=== PATIENT | female | born 1940 | race Caucasian/White ===

== ENCOUNTER 2018-10-05 08:35 | Inpatient (IN) ==
[2018-10-05 09:16] LABS: Hematocrit 39.3 % (37.0-47.0); Hemoglobin 13.4 gm/dL (12.5-16.0); Mean Corpuscular Hgb Conc 34.1 g/dl (32-36); Mean Platelet Volume 8.2 fl (8-12.5); Neutrophil % 87.8 % (42-75.0); Platelet Count 224 K/mm3 (150-450); Red Blood Count 4.32 M/mm3 (4.2-5.4); Red Cell Distribution Width 13.2 % (11.5-14.0); White Blood Count 9.1 K/mm3 (4.0-10.5)
[2018-10-05] MEDS ORDERED: NORMAL SALINE 1,000 ML IV ONE (09:24)
[2018-10-05 09:28] LABS: Albumin * 3.6 gm/dl (3.4-5.0); Anion Gap 16.3 mmol/L (6.8-13.8); BUN/Creatinine Ratio 22.1 (9.0-21.6); Bilirubin, Total 0.4 mg/dL (0.0-1.1); Ca. Corrected For Albumin 9.2 mg/dL (8.4-10.2); Calcium * 9.2 mg/dL (7.9-10.9); Carbon Dioxide 20.5 mmol/L (24-32.6); Magnesium 1.4 mg/dL (1.2-2.8); Potassium 3.8 mmol/L (3.4-4.6); Total Protein 7.4 gm/dL (6.2-8.2)
--- NOTE | 2018-10-05 09:53 | ERNOTE ---
Neuro HPI ER Record Date of Service: 10/05/18 Presenting Symptoms: other - Dizziness and confusion Time Seen by Provider: 10/05/18 09:21 Source: patient, family - Granddaughter Exam Limitations: no limitations Immunizations: IMMUNIZATION HX Immunizations Up to Date Yes History of Influenza Vaccine Yes Hx Pneumococcal Vaccination Yes Allergies/Adverse Reactions: Allergies Allergy/AdvReac Type Severity Reaction Status Date / Time Sulfa (Sulfonamide Allergy Verified 10/05/18 12:55 Antibiotics) atorvastatin [From Lipitor] AdvReac Intermediate Other Verified 10/05/18 15:56 venlafaxine AdvReac Mild Other Verified 10/05/18 15:56 Home Medications: HOME MEDICATIONS Alendronate Sodium 70 mg PO Q7D 10/05/18 [Last Taken Unknown] Alprazolam 0.5 mg PO BID PRN 10/05/18 [Last Taken Unknown] Blood Sugar Diagnostic [Freestyle Precision James] 1 ea MC BID 10/05/18 [Last Taken Unknown] Bupropion HCl [Wellbutrin Sr] 150 mg PO DAILY 10/05/18 [Last Taken Unknown] Dapagliflozin Propanediol [Farxiga] 10 mg PO DAILY 10/05/18 [Last Taken Unknown] Esomeprazole Magnesium 40 mg PO DAILY 10/05/18 [Last Taken Unknown] FLUoxetine HCL [Prozac] 40 mg PO QAM 10/05/18 [Last Taken Unknown] Fenofibrate 160 mg PO DAILY 10/05/18 [Last Taken Unknown] Lancets [Unilet Gp Lancet] 1 ea MC BID 10/05/18 [Last Taken Unknown] Levothyroxine Sodium [Synthroid] 50 mcg PO DAILY 10/05/18 [Last Taken Unknown] Lisinopril [Prinivil] 10 mg PO DAILY 10/05/18 [Last Taken Unknown] Loratadine [Claritin] 10 mg PO DAILY PRN 10/05/18 [Last Taken Unknown] Rosuvastatin Calcium 10 mg PO DAILY 10/05/18 [Last Taken Unknown] Temazepam 15 mg PO Q2D 10/05/18 [Last Taken Unknown] hydrOXYzine HCL [Hydroxyzine HCl] 50 mg PO Q6H PRN 10/05/18 [Last Taken Unknown] traZODone HCL [Trazodone HCl] 50 mg PO HS 10/05/18 [Last Taken Unknown] - History of Present Illness Narrative: This patient is a 78-year-old female who says that she is here because she got real dizzy and almost fell this morning. The granddaughter says that the family was concerned because she seemed to be confused. She normally is cared for in [place] but came here because they do not like her doctor. The patient denies fever, cough, and cold symptoms. She said that she is been having some diarrhea. She has diabetes and does not check her sugar at home. She has not eaten since yesterday. She has dysuria. The granddaughter is concerned that she is not on the right medication. They do not know her medications and did not bring them with her. Review of Systems - Review of Systems Constitutional: Absent: fever, chills, weakness EYE: Absent: blurred vision, double vision, vision changes ENT: Absent: ear pain, nose congestion, nasal drainage, sore throat Respiratory: Absent: shortness of breath, cough Cardiology: Absent: chest pain - She reports having a short episode of chest heaviness this morning. Gastrointestinal/Abdominal: Present: diarrhea, eating less, drinking less. Absent: nausea, vomiting, constipation, abdominal pain Genitourinary: Present: pain, dysuria. Absent: frequency, hematuria Musculoskeletal: Present: joint pain Neurological: Present: dizziness/light-headedness. Absent: anxiety, depressed, headache, weakness, numbness, tingling Endocrine: Present: See HPI, increased thirst, unexplained weight gain - She has gained 8 pounds in the past 3 months.. Absent: unexplained weight loss Hematologic/Lymphatic: Present: other - No active bleeding Psych: Absent: anxiety, depressed Medical History (Last Updated 10/05/18 @ 09:31 by Danial Sharif MD) Depression Diabetes High cholesterol Osteoarthritis Surgical History: Surgical History (Last Reviewed 10/05/18 @ 09:30 by Danial Sharif MD) History of bilateral mastectomy History of breast augmentation History of reconstruction of right breast History of rotator cuff surgery Family History: Family History (Last Updated 10/05/18 @ 16:29 by Hemal Cohen RN) Mother Heart disease 96 Hypertension Uterine cancer Father Epilepsy @ 81 Hypertension CVA (cerebral vascular accident) Social History: Preferred Language Bengali Smoking Status Never smoker Alcohol Use none Drug Use none No Social History Section defined Physical Exam - Physical Exam General Appearance: Present: wd/wn, alert, no apparent distress Head Exam: Present: normal inspection Eye Exam: Normal inspection: bilateral Ears, Nose, Throat: Present: dry mucous membranes Neck: Present: normal inspection, nontender. Absent: lymphadenopathy (R), lymphadenopathy (L), thyromegaly Respiratory: Present: no respiratory distress, normal breath sounds, chest nontender, lungs clear Cardiovascular/Chest: Present: regular rate, rhythm, no murmur Gastrointestinal/Abdominal: Present: normal bowel sounds, nontender, nondistended, soft, no organomegaly Back Exam: Present: normal inspection Extremity Exam: Present: normal inspection, non-tender, no edema Neurological Exam: Present: alert, normal mood/affect, no motor/sensory deficits, other - She is confused about some events of the illness. Skin Exam: Present: normal color, warm/dry Progress - Date and Time Seen: Date and Time: I spoke the patient and her family about the chest x-ray, EKG, and labs. The patient is agreeable to hospitalization. I spoke with Dr. Person about the patient. He agrees to admit the patient. - Results and Orders Patient's Lab Results:: I have reviewed the patient's lab results. Results and Orders: Laboratory Tests 10/05/18 10/05/18 10/05/18 09:10 09:10 09:22 WBC 9.1 RBC 4.32 Hgb 13.4 Hct 39.3 MCV 91.0 MCH 31.0 MCHC 34.1 RDW 13.2 Plt Count 224 MPV 8.2 Immature Gran % (Auto) 0.30 Immature Gran # (Auto) 0.03 Neutrophils % 87.8 H Lymphocytes % 5.6 L Monocytes % 5.8 Eosinophils % 0.3 Basophils % 0.2 Nucleated RBC % 0.0 Neutrophils # 8.0 H Lymphocytes # 0.51 L Monocytes # 0.5 Eosinophils # 0.0 Absolute Basophils 0.0 Sodium 136 Plasma Sodium 137 Potassium 3.8 Chloride 103 Carbon Dioxide 20.5 L Anion Gap 16.3 H BUN 23 Creatinine 1.04 Est GFR (Non-Af Amer) 55 L BUN/Creatinine Ratio 22.1 H Random Glucose 141 H Calcium 9.2 Calcium Adj for Albumin 9.2 Magnesium 1.4 Total Bilirubin 0.4 AST 20 ALT 21 Alkaline Phosphatase 91 Troponin I 0.104 H Albumin 3.6 Urine Color Urine Appearance Urine pH Ur Specific [place] Urine Protein Urine Glucose (UA) Urine Ketones Urine Blood Urine Nitrate Urine Bilirubin Urine Urobilinogen Ur Leukocyte Esterase Urine RBC Urine WBC Ur Epithelial Cells Urine Bacteria Urine Culture Comments 10/05/18 10:04 WBC RBC Hgb Hct MCV MCH MCHC RDW Plt Count MPV Immature Gran % (Auto) Immature Gran # (Auto) Neutrophils % Lymphocytes % Monocytes % Eosinophils % Basophils % Nucleated RBC % Neutrophils # Lymphocytes # Monocytes # Eosinophils # Absolute Basophils Sodium Plasma Sodium Potassium Chloride Carbon Dioxide Anion Gap BUN Creatinine Est GFR (Non-Af Amer) BUN/Creatinine Ratio Random Glucose Calcium Calcium Adj for Albumin Magnesium Total Bilirubin AST ALT Alkaline Phosphatase Troponin I Albumin Urine Color Yellow Urine Appearance Clear Urine pH 5.5 Ur Specific [place] 1.015 Urine Protein Negative Urine Glucose (UA) >=1000 H Urine Ketones Negative Urine Blood Negative Urine Nitrate Positive H Urine Bilirubin Negative Urine Urobilinogen Normal Ur Leukocyte Esterase Negative Urine RBC None seen Urine WBC 0-5 Ur Epithelial Cells Trace Urine Bacteria 2+ H Urine Culture Comments Culture to follow - Vital Signs Patient's Vital Signs:: I have reviewed the patient's vital signs. Vital Signs: Vital Signs 10/05/18 08:43 10/05/18 09:06 Temperature 37.5 C Pulse Rate 90 93 Respiratory Rate 28 H Blood Pressure 137/70 O2 Sat by Pulse Oximetry 93 - EKG EKG #1 EKG read: Interp. by me EKG Comments: Normal sinus rhythm Rate [address] depression of less than a millimeter No old to compare - X-Ray X-Ray #1 X-Ray: chest Interpretation: Reviewed by me X-ray Comments: ONE VIEW CHEST Comparison: NONE Technique: A single portable upright AP view of the chest were obtained. Findings: The cardiac silhouette is within normal limits of size. The mediastinum and hilum are with in normal limits. There is increased density involving the right mid-lower lung zone, concerning for pneumonia. The remaining lung mcpherson are clear. I do not see evidence for an effusion or pulmonary edema. IMPRESSION: 1. NO PRIOR STUDIES FOR COMPARISON. 2. INCREASED DENSITY IN THE RIGHT MID TO LOWER LUNG ZONE, CONCERNING FOR PNEUMONIA. CLINICAL CORRELATION REQUIRED. Electronically signed by Fadi Montenegro M.D.. - Progress/Reassessment Chief Complaint: Altered Mental Status Departure Clinical Impression: Confusion, Urinary tract infection, Elevated troponin, Pneumonia - Departure Disposition: Still a patient Condition: Stable
[2018-10-05 10:18] LABS: Urine Bilirubin Negative (NEGATIVE); Urine Blood Negative /ul (NEGATIVE); Urine Ketone Negative (NEGATIVE); Urine Protein Negative (NEGATIVE); Urine Specific Gravity 1.015 SP.GR. (1.005-1.010); Urine Urobilinogen Normal (NORMAL); Urine pH 5.5 pH (5.0-7.0)
[2018-10-05 10:30] LABS: Urine Appearance Clear (CLEAR); Urine Color Yellow; Urine Nitrite Positive (NEGATIVE); Urine WBC 0-5 /hpf (0-5)
[2018-10-05 10:31] LABS: Urine Bacteria 2+; Urine RBC None Seen /hpf (0-5)
[2018-10-05] MEDS ORDERED: cefTRIAXone SODIUM 1,000 MG/100 ML BAG IV ONE (10:51)
[2018-10-05] MEDS ORDERED: ASPIRIN 81 MG TAB.CHEW PO ONE (10:51)
[2018-10-05] MEDS: AZITHROMYCIN 500 MG in DEXTROSE 5 % IN WATER 250 ML IV SCH ×2 (12:51)
[2018-10-05] MEDS: ACETAMINOPHEN 500 MG TABLET PO PRN ×2 (14:11→20:25)
[2018-10-05] MEDS: NORMAL SALINE 1,000 ML IV PRN (16:48)
--- NOTE | 2018-10-05 23:58 | HP ---
Chief Complaint - Chief Complaint Date of Service: 10/05/18 Time of Service: 23:58 Chief Complaint: confusion History of Present Illness: Racquel is a 78 yo female that presented to the [facility] ER for dizziness and family reporting she was acting confused. She denies cold symptoms. She has dysuria and loss of appetite. She has diabetes and does not check her sugar at home. In the ER she was evaluated and chest xray shows infiltrate in right middle and lower lobe and urine is suspicious for UTI. Medical History (Updated 10/06/18 @ 01:43 by Danial Sharif MD) Actinic keratosis Acute bronchitis Acute sinusitis, unspecified Anemia, unspecified Backache Backache, unspecified COPD (chronic obstructive pulmonary disease) Cataract Chronic airway obstruction, not elsewhere classified Cystitis, unspecified DM w/o complication type II, uncontrolled Delirium due to conditions classified elsewhere Depression Dermatitis, unspecified Diabetes Dysthymic disorder Esophageal reflux Essential hypertension Essential hypertension Fatigue Generalized pain Hemorrhoids High cholesterol History of breast cancer History of falling Hyperlipidemia Hypertension Hypothyroidism Insomnia Itching Limb pain Localized primary osteoarthritis of lower leg Low back pain Major depression, single episode Malaise and fatigue Menopause JOAQUINA (obstructive sleep apnea) Osteoarthritis Osteoarthritis Osteoarthritis of knee Osteoporosis Other diseases of lung, not elsewhere classified Other specified disorders of urinary system Other voice and resonance disorders Pain, joint, pelvic region and thigh Screening for colon cancer Seborrheic keratosis Stomatitis and mucositis, unspecified Unspecified asthma Surgical History: Surgical History (Updated 10/05/18 @ 09:14 by Evelia Mack RN) History of bilateral mastectomy History of breast augmentation History of reconstruction of right breast History of rotator cuff surgery Family History: Family History (Last Updated 10/05/18 @ 16:29 by Hemal Cohen RN) Mother Heart disease 96 Hypertension Uterine cancer Father Epilepsy @ 81 Hypertension CVA (cerebral vascular accident) Social History: Patient Lives/Resources Home Utilized Occupation Retired Preferred Language Slovenian Do you have any anabaptism or Yes cultural preference? Smoking Status Former smoker Have you smoked in the past 12 No months Do you dip or chew tobacco No Alcohol Use none Drug Use none No Social History Section defined Review Of Systems (GEN) - Review of Systems Generalized/Overall Review: Present: Weakness, Fatigue. Absent: Chills, Fever EENTM: Present: No Symptoms Reported Respiratory: Absent: Cough, Shortness of Breath Cardiac: Absent: Chest Pain, Edema, Palpitations Abdominal: Present: Nausea, Diarrhea. Absent: Vomiting Genitourinary: Present: Frequency, Dysuria Musculoskeletal: Present: No Symptoms Reported Neurological: Present: Weakness Skin: Present: No Symptoms Reported Endocrine: Present: No Symptoms Reported Immunizations: IMMUNIZATION HX Immunizations Up to Date Yes History of Influenza Vaccine Yes Hx Pneumococcal Vaccination Yes Allergies/Adverse Reactions: Allergies Allergy/AdvReac Type Severity Reaction Status Date / Time Sulfa (Sulfonamide Allergy Verified 10/05/18 12:55 Antibiotics) atorvastatin [From Lipitor] AdvReac Intermediate Other Verified 10/05/18 15:56 venlafaxine AdvReac Mild Other Verified 10/05/18 15:56 Home Medications: HOME MEDICATIONS Alendronate Sodium 70 mg PO Q7D 10/05/18 [Last Taken Unknown] Alprazolam 0.5 mg PO BID PRN 10/05/18 [Last Taken Unknown] Blood Sugar Diagnostic [Freestyle Precision James] 1 ea MC BID 10/05/18 [Last Taken Unknown] Bupropion HCl [Wellbutrin Sr] 150 mg PO DAILY 10/05/18 [Last Taken Unknown] Dapagliflozin Propanediol [Farxiga] 10 mg PO DAILY 10/05/18 [Last Taken Unknown] Esomeprazole Magnesium 40 mg PO DAILY 10/05/18 [Last Taken Unknown] FLUoxetine HCL [Prozac] 40 mg PO QAM 10/05/18 [Last Taken Unknown] Fenofibrate 160 mg PO DAILY 10/05/18 [Last Taken Unknown] Lancets [Unilet Gp Lancet] 1 ea MC BID 10/05/18 [Last Taken Unknown] Levothyroxine Sodium [Synthroid] 50 mcg PO DAILY 10/05/18 [Last Taken Unknown] Lisinopril [Prinivil] 10 mg PO DAILY 10/05/18 [Last Taken Unknown] Loratadine [Claritin] 10 mg PO DAILY PRN 10/05/18 [Last Taken Unknown] Rosuvastatin Calcium 10 mg PO DAILY 10/05/18 [Last Taken Unknown] Temazepam 15 mg PO Q2D 10/05/18 [Last Taken Unknown] hydrOXYzine HCL [Hydroxyzine HCl] 50 mg PO Q6H PRN 10/05/18 [Last Taken Unknown] traZODone HCL [Trazodone HCl] 50 mg PO HS 10/05/18 [Last Taken Unknown] Azithromycin [Zithromax] 250 mg PO DAILY #3 tab 10/07/18 [Last Taken Unknown] Cefdinir [Omnicef] 300 mg PO Q12H #20 cap 10/07/18 [Last Taken Unknown] Exam - Exam Vital Signs: Vital Signs - Last Taken Temp 37.2 C 10/05/18 19:18 Pulse 80 10/05/18 19:18 Resp 18 10/05/18 19:18 BP 84/52 L 10/05/18 19:18 Pulse Ox 97 10/05/18 19:18 Constitutional: Present: Alert, Oriented x3, Cooperative ENT Exam: Present: hearing grossly normal Eye Exam: bilateral eye: normal inspection Respiratory: Present: chest non-tender, rales - right lower lobe Cardiovascular/Chest: Present: regular rate, rhythm, no murmur Peripheral Pulses: radial (R): 2+, radial (L): 2+ Abdomen: Present: Normal bowel sounds, soft, nontender, nondistended Skin Exam: Present: normal color, warm/dry, no cyanosis Appearance: Present: appropriate appearance, other - increased rate of speech, some nonsensical Eye contact: Present: cooperative, good eye contact Diagnostic Studies: Abnormal Lab Results 10/05/18 10/05/18 10/05/18 Range/Units 09:10 09:10 09:22 Neutrophils % 87.8 H (42-75.0) % Lymphocytes % 5.6 L (20-51) % Neutrophils # 8.0 H (1.3-6.0) K/mm3 Lymphocytes # 0.51 L (1.5-3.5) k/mm3 Carbon Dioxide 20.5 L (24-32.6) mmol/L Anion Gap 16.3 H (6.8-13.8) mmol/L Est GFR (Non-Af Amer) 55 L (60-130) mL/min BUN/Creatinine Ratio 22.1 H (9.0-21.6) Random Glucose 141 H (70-110) mg/dL Troponin I 0.104 H (0.00-0.10) ng/mL Urine Glucose (UA) (NEGATIVE) mg/dL Urine Nitrate (NEGATIVE) Urine Bacteria (NONE) 10/05/18 10/05/18 10/05/18 Range/Units 10:04 13:34 19:00 Neutrophils % (42-75.0) % Lymphocytes % (20-51) % Neutrophils # (1.3-6.0) K/mm3 Lymphocytes # (1.5-3.5) k/mm3 Carbon Dioxide (24-32.6) mmol/L Anion Gap (6.8-13.8) mmol/L Est GFR (Non-Af Amer) (60-130) mL/min BUN/Creatinine Ratio (9.0-21.6) Random Glucose (70-110) mg/dL Troponin I 0.356 H* 0.407 H* (0.00-0.10) ng/mL Urine Glucose (UA) >=1000 H (NEGATIVE) mg/dL Urine Nitrate Positive H (NEGATIVE) Urine Bacteria 2+ H (NONE) Laboratory Results WBC 9.1 K/mm3 (4.0-10.5) 10/05/18 09:10 RBC 4.32 M/mm3 (4.2-5.4) 10/05/18 09:10 Hgb 13.4 gm/dL (12.5-16.0) 10/05/18 09:10 Hct 39.3 % (37.0-47.0) 10/05/18 09:10 MCV 91.0 fl (78-100) 10/05/18 09:10 MCH 31.0 pg (27-31) 10/05/18 09:10 MCHC 34.1 g/dl (32-36) 10/05/18 09:10 RDW 13.2 % (11.5-14.0) 10/05/18 09:10 Plt Count 224 K/mm3 (150-450) 10/05/18 09:10 MPV 8.2 fl (8-12.5) 10/05/18 09:10 Immature Gran % (Auto) 0.30 % (0.001-0.429) 10/05/18 09:10 Immature Gran # (Auto) 0.03 K/mm3 (0.000-0.0310) 10/05/18 09:10 Neutrophils % 87.8 % (42-75.0) H 10/05/18 09:10 Lymphocytes % 5.6 % (20-51) L 10/05/18 09:10 Monocytes % 5.8 % (0.0-9) 10/05/18 09:10 Eosinophils % 0.3 % (0.0-3.0) 10/05/18 09:10 Basophils % 0.2 % (0.0-1.0) 10/05/18 09:10 Nucleated RBC % 0.0 k/mm3 (0-1) 10/05/18 09:10 Neutrophils # 8.0 K/mm3 (1.3-6.0) H 10/05/18 09:10 Lymphocytes # 0.51 k/mm3 (1.5-3.5) L 10/05/18 09:10 Monocytes # 0.5 k/mm3 (0.0-1.0) 10/05/18 09:10 Eosinophils # 0.0 k/mm3 (0.0-0.7) 10/05/18 09:10 Absolute Basophils 0.0 k/mm3 (0.0-0.1) 10/05/18 09:10 Sodium 136 mmol/L (132-142) 10/05/18 09:10 Plasma Sodium 137 mmol/L (130-142) 10/05/18 09:10 Potassium 3.8 mmol/L (3.4-4.6) 10/05/18 09:10 Chloride 103 mmol/L (97-106) 10/05/18 09:10 Carbon Dioxide 20.5 mmol/L (24-32.6) L 10/05/18 09:10 Anion Gap 16.3 mmol/L (6.8-13.8) H 10/05/18 09:10 BUN 23 mg/dL (3-23) 10/05/18 09:10 Creatinine 1.04 mg/dL (0.4-1.4) 10/05/18 09:10 Est GFR (Non-Af Amer) 55 mL/min (60-130) L 10/05/18 09:10 BUN/Creatinine Ratio 22.1 (9.0-21.6) H 10/05/18 09:10 Random Glucose 141 mg/dL (70-110) H 10/05/18 09:10 Calcium 9.2 mg/dL (7.9-10.9) 10/05/18 09:10 Calcium Adj for Albumin 9.2 mg/dL (8.4-10.2) 10/05/18 09:10 Magnesium 1.4 mg/dL (1.2-2.8) 10/05/18 09:10 Total Bilirubin 0.4 mg/dL (0.0-1.1) 10/05/18 09:10 AST 20 U/L (0-48) 10/05/18 09:10 ALT 21 U/L (19-67) 10/05/18 09:10 Alkaline Phosphatase 91 U/L (50-170) 10/05/18 09:10 Troponin I 0.407 ng/mL (0.00-0.10) H* 10/05/18 19:00 Total Protein 7.4 gm/dL (6.2-8.2) 10/05/18 09:10 Albumin 3.6 gm/dl (3.4-5.0) 10/05/18 09:10 Urine Color Yellow 10/05/18 10:04 Urine Appearance Clear (CLEAR) 10/05/18 10:04 Urine pH 5.5 pH (5.0-7.0) 10/05/18 10:04 Ur Specific [place] 1.015 SP.GR. (1.005-1.010) 10/05/18 10:04 Urine Protein Negative mg/dL (NEGATIVE) 10/05/18 10:04 Urine Glucose (UA) >=1000 mg/dL (NEGATIVE) H 10/05/18 10:04 Urine Ketones Negative mg/dL (NEGATIVE) 10/05/18 10:04 Urine Blood Negative /ul (NEGATIVE) 10/05/18 10:04 Urine Nitrate Positive (NEGATIVE) H 10/05/18 10:04 Urine Bilirubin Negative mg/dl (NEGATIVE) 10/05/18 10:04 Urine Urobilinogen Normal EU/dl (NORMAL) 10/05/18 10:04 Ur Leukocyte Esterase Negative /ul (NEGATIVE) 10/05/18 10:04 Urine RBC None seen /hpf (0-5) 10/05/18 10:04 Urine WBC 0-5 /hpf (0-5) 10/05/18 10:04 Ur Epithelial Cells Trace /hpf (0-5) 10/05/18 10:04 Urine Bacteria 2+ (NONE) H 10/05/18 10:04 Urine Culture Comments Culture to follow 10/05/18 10:04 Assessment/Plan - Assessment/Plan (1) Pneumonia Assessment: Racquel is a 78 yo female with pneumonia based on chest xray with infiltrate in right middle and lower lobe, leukocytosis. She has elevated BUN, confusion, and advanced age. She therefore falls into the severe risk group with a 14% all cause mortality risk based on CURB-65. Based on this increased risk she meets criteria for inpatient treatment. Will treat with rocephin and azithromycin. Expect >2 midnights to start treatment and to monitor for response. Problem: Acute (2) Urinary tract infection Assessment: Urine suspicious for UTI. Will culture urine. On rocephin for pneumonia which will cover UTI. Problem: Acute (3) Elevated troponin Assessment: Troponin in indeterminate range. She has no chest pain and there are no EKG changes to indicate STEMI. Will trend troponin and monitor Racquel for symptoms that could be cardiac. Problem: Acute
[2018-10-06] MEDS: NORMAL SALINE 1,000 ML IV PRN ×3 (00:52→20:25)
[2018-10-06] MEDS: ACETAMINOPHEN 500 MG TABLET PO PRN ×3 (04:36→19:22)
[2018-10-06] MEDS: AZITHROMYCIN 500 MG in DEXTROSE 5 % IN WATER 250 ML IV SCH ×2 (12:35)
[2018-10-06] MEDS ORDERED: NITROGLYCERIN 0.4 MG/TAB BTL SL ONE (13:46)
[2018-10-06] MEDS ORDERED: LORATADINE 10 MG TABLET PO PRN (13:48)
[2018-10-06] MEDS ORDERED: hydrOXYzine HCL 25 MG TABLET PO PRN (13:48)
[2018-10-06] MEDS ORDERED: ASPIRIN 81 MG TAB.CHEW PO ONE (13:51)
[2018-10-06] MEDS ORDERED: ROSUVASTATIN CALCIUM 10 MG TABLET PO SCH (14:00)
[2018-10-06] MEDS ORDERED: DAPAGLIFLOZIN PROPANEDIOL 10 MG PO SCH (14:00)
[2018-10-06] MEDS: LISINOPRIL 10 MG TABLET PO SCH (14:25)
[2018-10-06] MEDS: LEVOTHYROXINE SODIUM 50 MCG TABLET PO SCH (14:25)
[2018-10-06] MEDS: PANTOPRAZOLE SODIUM 40 MG TABLET.EC PO SCH (14:25)
[2018-10-06] MEDS: buPROPion HCL 150 MG TABLET.SA PO SCH (14:25)
[2018-10-06] MEDS: FENOFIBRATE,MICRONIZED 134 MG CAPSULE PO SCH (14:25)
[2018-10-06] MEDS: ALPRAZolam 0.5 MG TABLET PO PRN ×2 (15:13→21:35)
[2018-10-06] MEDS: Dapagliflozin Propanediol [Farxiga] 10 MG PO SCH (17:07)
[2018-10-06] MEDS ORDERED: KETOROLAC TROMETHAMINE 30 MG/ML VIAL IV ONE (19:35)
[2018-10-06] MEDS ORDERED: traZODone HCL 50 MG TABLET PO SCH (21:00)
--- NOTE | 2018-10-06 23:44 | PN ---
Subjective - Date and Time Seen Date: 10/06/18 Time: 12:00 Subjective Narrative: Racquel reports feeling better. She has not been able to ambulate in the halls as she continues to feel weak. Troponin has been monitored and relatively stable. No signs of respiratory distress. No fever, chills, nausea, or vomiting. Objective - Vitals Vitals: Last Vital Signs Temp 37.3 C 10/06/18 20:07 Pulse 77 10/06/18 20:07 Resp 13 10/06/18 20:07 BP 98/62 10/06/18 20:07 Pulse Ox 98 10/06/18 20:07 - Abnormal Lab Findings Abnormal Lab Findings: Abnormal Lab Results 10/06/18 Range/Units 14:03 Troponin I 0.306 H* (0.00-0.10) ng/mL - Exam Constitutional: Present: Alert, Oriented x3, Cooperative ENT Exam: Present: hearing grossly normal Respiratory: Present: rales - Right lower lobe Cardiovascular/Chest: Present: regular rate, rhythm, no murmur Abdomen: Present: Normal bowel sounds, soft, nontender, nondistended Skin Exam: Present: normal color, warm/dry, no cyanosis Appearance: Present: appropriate appearance, appropriate insight Assessment/Plan Plan Narrative: Improving. Will continue treatment. Encouraged ambulation. If she is able to get around well enough and continues to improve without confusion she may be discharged to home tomorrow. - Problems/Diagnosis (1) Elevated troponin Problem: Acute (2) Pneumonia Problem: Acute (3) Urinary tract infection Problem: Acute
[2018-10-07] MEDS: NORMAL SALINE 1,000 ML IV PRN (05:09)
[2018-10-07] MEDS: LEVOTHYROXINE SODIUM 50 MCG TABLET PO SCH (07:10)
[2018-10-07] MEDS: ALPRAZolam 0.5 MG TABLET PO PRN ×2 (07:22→16:49)
[2018-10-07] MEDS: PANTOPRAZOLE SODIUM 40 MG TABLET.EC PO SCH (08:38)
[2018-10-07] MEDS: FENOFIBRATE,MICRONIZED 134 MG CAPSULE PO SCH (08:38)
[2018-10-07] MEDS: LISINOPRIL 10 MG TABLET PO SCH (08:38)
[2018-10-07] MEDS: buPROPion HCL 150 MG TABLET.SA PO SCH (08:38)
[2018-10-07] MEDS: Dapagliflozin Propanediol [Farxiga] 10 MG PO SCH (08:39)
[2018-10-07 08:58] LABS: Hematocrit 33.5 % (37.0-47.0); Mean Cell Volume 93.1 fl (78-100); Mean Corpuscular Hemoglobin 30.6 pg (27-31); Mean Corpuscular Hgb Conc 32.8 g/dl (32-36); Mean Platelet Volume 8.6 fl (8-12.5); Neutrophil # 7.9 K/mm3 (1.3-6.0); Neutrophil % 77.5 % (42-75.0); Platelet Count 206 K/mm3 (150-450); Red Cell Distribution Width 13.3 % (11.5-14.0); White Blood Count 10.1 K/mm3 (4.0-10.5)
[2018-10-07] MEDS ORDERED: FLUoxetine HCL 20 MG CAPSULE PO SCH (09:00)
[2018-10-07 09:15] LABS: Albumin * 2.8 gm/dl (3.4-5.0); BUN/Creatinine Ratio 20.5 (9.0-21.6); Bilirubin, Total 0.3 mg/dL (0.0-1.1); Ca. Corrected For Albumin 9.1 mg/dL (8.4-10.2); Calcium * 8.5 mg/dL (7.9-10.9); Carbon Dioxide 22.3 mmol/L (24-32.6); Potassium 4.3 mmol/L (3.4-4.6); Total Protein 6.5 gm/dL (6.2-8.2)
[2018-10-07] MEDS: ACETAMINOPHEN 500 MG TABLET PO PRN (11:26)
[2018-10-07] MEDS: AZITHROMYCIN 500 MG in DEXTROSE 5 % IN WATER 250 ML IV SCH ×2 (11:52)
--- NOTE | 2018-10-07 16:08 | DS ---
(1) Elevated troponin Problem: Acute (2) Pneumonia Problem: Acute (3) Urinary tract infection Problem: Acute Description of Stay: Racquel is a 78 yo female that was admitted for community acquired pneumonia, urinary tract infection, and elevated troponin in the indeterminate range. She was treated with rocephin and azithromycin. She had monitoring on telemetry, serial troponins, and EKG. EKG was normal and troponins were stable. She had no concerning chest pain. She felt short of breath and had some tightness, but this resolved with anxiety medication. She was not hypoxic but due to both urinary and pulmonary infection and monitoring of cardiac enzymes she was admitted to inpatient due to pneumonia severity score. She gradually improved and will be discharged to home today. Will send in prescriptions for cefdinir and azithromycin to complete treatment for UTI and pneumonia. She will follow up with her PCP in a week to discuss cardiac stress testing to elevated troponins, although EKG and telemetry were normal. Procedures Performed: none Results and Findings: Lab Pending Results 10/05/18 09:10: WBC 9.1, RBC 4.32, Hgb 13.4, Hct 39.3, MCV 91.0, MCH 31.0, MCHC 34.1, RDW 13.2, Plt Count 224, MPV 8.2, Immature Gran % (Auto) 0.30, Immature Gran # (Auto) 0.03, Neutrophils % 87.8 H, Lymphocytes % 5.6 L, Monocytes % 5.8, Eosinophils % 0.3, Basophils % 0.2, Nucleated RBC % 0.0, Neutrophils # 8.0 H, Lymphocytes # 0.51 L, Monocytes # 0.5, Eosinophils # 0.0, Absolute Basophils 0.0 10/05/18 09:10: Sodium 136, Plasma Sodium 137, Potassium 3.8, Chloride 103, Carbon Dioxide 20.5 L, Anion Gap 16.3 H, BUN 23, Creatinine 1.04, Est GFR (Non- Af Amer) 55 L, BUN/Creatinine Ratio 22.1 H, Random Glucose 141 H, Calcium 9.2, Calcium Adj for Albumin 9.2, Magnesium 1.4, Total Bilirubin 0.4, AST 20, ALT 21, Alkaline Phosphatase 91, Total Protein 7.4, Albumin 3.6 10/05/18 09:22: Troponin I 0.104 H 10/05/18 10:04: Urine Color Yellow, Urine Appearance Clear, Urine pH 5.5, Ur Specific [place] 1.015, Urine Protein Negative, Urine Glucose (UA) >=1000 H, Urine Ketones Negative, Urine Blood Negative, Urine Nitrate Positive H, Urine Bilirubin Negative, Urine Urobilinogen Normal, Ur Leukocyte Esterase Negative, Urine RBC None seen, Urine WBC 0-5, Ur Epithelial Cells Trace, Urine Bacteria 2+ H, Urine Culture Comments Culture to follow 10/05/18 13:34: Troponin I 0.356 H* 10/05/18 19:00: Troponin I 0.407 H* 10/06/18 14:03: Troponin I 0.306 H* 10/07/18 08:52: WBC 10.1, RBC 3.60 L, Hgb 11.0 L, Hct 33.5 L, MCV 93.1, MCH 30.6, MCHC 32.8, RDW 13.3, Plt Count 206, MPV 8.6, Immature Gran % (Auto) 0.90 H, Immature Gran # (Auto) 0.09 H, Neutrophils % 77.5 H, Lymphocytes % 12.9 L, Monocytes % 5.3, Eosinophils % 3.2 H, Basophils % 0.2, Nucleated RBC % 0.0, Neutrophils # 7.9 H, Lymphocytes # 1.31 L, Monocytes # 0.5, Eosinophils # 0.3, Absolute Basophils 0.0 10/07/18 08:52: Sodium 138, Plasma Sodium 140, Potassium 4.3, Chloride 106, Carbon Dioxide 22.3 L, Anion Gap 14.0 H, BUN 15, Creatinine 0.73, Est GFR (Non- Af Amer) 82 D, BUN/Creatinine Ratio 20.5, Random Glucose 196 H D, Calcium 8.5, Calcium Adj for Albumin 9.1, Total Bilirubin 0.3, AST 16, ALT 17 L, Alkaline Phosphatase 79, Total Protein 6.5, Albumin 2.8 L Discharge Location: Home Disposition: Home self-care Condition: Good Discharge Activity: Activity as tolerated Discharge Diet: General/regular food Referrals: Charles Baum MD [Primary Care Provider] - One Week Problem Oriented Discharge Instructions to Patient/Family: Community-Acquired Pneumonia, Adult, [id number], Urinary Tract Infection, Adult, [id number] Additional Patient Instructions (free text): -Please make TCM appointment unless correction discharge. Thank you! Talita @ [phone]. Prescriptions (Any new or edited meds): Cefdinir [Omnicef] 300 mg PO Q12H #20 cap Azithromycin [Zithromax] 250 mg PO DAILY #3 tab Complete Home Medications List: Complete Home Medication List: Alendronate Sodium 70 mg PO Q7D 10/05/18 Alprazolam 0.5 mg PO BID PRN 10/05/18 Blood Sugar Diagnostic [Freestyle Precision James] 1 ea MC BID 10/05/18 Bupropion HCl [Wellbutrin Sr] 150 mg PO DAILY 10/05/18 Dapagliflozin Propanediol [Farxiga] 10 mg PO DAILY 10/05/18 Esomeprazole Magnesium 40 mg PO DAILY 10/05/18 FLUoxetine HCL [Prozac] 40 mg PO QAM 10/05/18 Fenofibrate 160 mg PO DAILY 10/05/18 Lancets [Unilet Gp Lancet] 1 ea MC BID 10/05/18 Levothyroxine Sodium [Synthroid] 50 mcg PO DAILY 10/05/18 Lisinopril [Prinivil] 10 mg PO DAILY 10/05/18 Loratadine [Claritin] 10 mg PO DAILY PRN 10/05/18 Rosuvastatin Calcium 10 mg PO DAILY 10/05/18 Temazepam 15 mg PO Q2D 10/05/18 hydrOXYzine HCL [Hydroxyzine HCl] 50 mg PO Q6H PRN 10/05/18 traZODone HCL [Trazodone HCl] 50 mg PO HS 10/05/18 Azithromycin [Zithromax] 250 mg PO DAILY #3 tab 10/07/18 Cefdinir [Omnicef] 300 mg PO Q12H #20 cap 10/07/18
[2018-10-07 16:44] VITALS: BP 155/88
== END 2018-10-07 17:30 | disposition home or self-care (01) | DRG 194 ==
LOC: ER 08:35 → MS 12:09
PROVIDERS: ADMIT Family Medicine; ATTEND Family Medicine
CPT/HCPCS: 36415; 71010; 71045; 80053; 81001; 83735; 84484; 85025; 87086; 93005; 94762; 96361; 96365; 99285